=== PATIENT | male | born 1960 | race Caucasian/White ===

== ENCOUNTER 2024-02-11 10:50 | Emergency (ER) | payer MEDICAID, OTHER ==
[~2024-02-11] VITALS: Ht 172.7 cm; Wt 70.0 kg
[2024-02-11 10:54] VITALS: TEMP 98; O2SAT 95
[2024-02-11] MEDS: LEVOFLOXACIN 750MG PREMIX 150 ML IV ONE (11:13)
[2024-02-11 11:36] LABS: HEMATOCRIT. 39.4 % (42.0-52.0); HEMOGLOBIN. 13.5 g/dL (14.0-18.0); MEAN CORPUSCULAR HEMOGLOBIN 32.3 pg (28.0-32.0); MEAN CORPUSCULAR HGB CONC 34.3 g/dL (31.0-37.0); MEAN CORPUSCULAR VOLUME 94.1 fL (80.0-94.0); MEAN PLATELET VOLUME 7.3 fl (7.4-10.4); PLATELET 191 x1000/uL (130-400); RED BLOOD CELL COUNT 4.18 mill/uL (4.7-6.1); RED CELL DISTRIBUTION WIDTH 13.9 % (11.6-14.6); WHITE BLOOD COUNT 10.4 x1000/uL (4.5-11.0)
[2024-02-11 11:40] LABS: DIFFERENTIAL COMMENT 1
[2024-02-11 11:45] LABS: CHLORIDE 109 mEq/L (98-107); INR 0.9; POTASSIUM 3.5 mEq/L (3.5-5.1); PROTHROMBIN TIME 10.2 sec (9.6-11.0); SODIUM 140 mEq/L (136-145)
[2024-02-11 11:46] LABS: CARBON DIOXIDE 25 mEq/L (21-32)
[2024-02-11 11:47] LABS: CALCIUM 8.9 mg/dL (8.7-10.4)
[2024-02-11 11:51] LABS: CREATININE 0.8 mg/dL (0.6-1.3)
[2024-02-11 11:52] LABS: GLUCOSE 112 mg/dL (70-105); UREA NITROGEN BLOOD 10 mg/dL (9-23)
[2024-02-11 12:39] LABS: PLATELET ESTIMATE NORMAL
[2024-02-11 16:11] VITALS: BP 128/80; PULSE 70; RESP 16; O2SAT 99
== END 2024-02-11 16:15 | disposition home or self-care (01) ==
LOC: ER 11:30 → EDBEDREQTM 12:26 → EDBEDREQ 12:26 → ER 16:15
DX: N39.0 Urinary tract infection, site not specified (principal); F20.9 Schizophrenia, unspecified; Z86.73 Personal history of transient ischemic attack (TIA), and cerebral infarction without residual deficits
CPT/HCPCS: 80048; 85025; 85610; 36415; 84145; 96374; 99283; J1956; Z7610